=== PATIENT | female | born 2000 | race Two or more races ===

== ENCOUNTER 2022-08-10 18:55 | Emergency (ER) | payer MEDICAID, OTHER ==
[~2022-08-10] VITALS: Ht 167.6 cm; Wt 56.7 kg
--- NOTE | 2022-08-10 19:16 | NUR ---
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 LAST SEIZURE "SEVERAL MONTHS AGO". NO ORAL TRAUMA OR INCONTINENCE. PT AWAKE AND ALERTX4 ON ASSESSMENT RR EVEN AND UNLABORED. PLACED ON MONITOR AND SZR PRECAUTIONS IN PLACE.
--- NOTE | 2022-08-10 19:24 | NUR ---
PHLEB AT BEDSIDE FOR LAB DRAW
--- NOTE | 2022-08-10 19:24 | NUR ---
emt at bedside for ekg
[2022-08-10] MEDS ORDERED: IV NS 0.9% 1,000 ML BAG IV ONE (19:30)
[2022-08-10 19:51] LABS: BASOPHILS % (AUTO) 0.1 % (0.0-2.0); EOSINOPHILS % (AUTO) 1.1 % (0.0-6.0); HEMATOCRIT 34 % (33-45); HEMOGLOBIN 11.6 g/dL (11.5-14.8); LYMPHOCYTES # (AUTO) 2.6 K/uL (0.8-4.8); LYMPHOCYTES % (AUTO) 28.9 % (20.0-44.0); MEAN CORPUSCULAR HGB CONC 34 g/dl (31.0-36.0); MEAN CORPUSCULAR VOLUME 97 fL (82-100); MONOCYTES # (AUTO) 0.8 K/uL (0.1-1.30); MONOCYTES % (AUTO) 8.5 % (2.0-12.0); NEUTROPHILS # (AUTO) 5.5 K/uL (1.8-8.9); NEUTROPHILS % (AUTO) 61.4 % (43.0-81.0); PLATELET COUNT (AUTO) 298 K/uL (150-450)
[2022-08-10 19:59] LABS: CARBON DIOXIDE 27 mmol/L (21-32); CHLORIDE 105 mmol/L (98-107); CREATININE 0.9 mg/dL (0.6-1.3); GLUCOSE 97 mg/dL (74-106); POTASSIUM 4.2 mmol/L (3.5-5.1); SODIUM SERUM 139 mmol/L (136-145); UREA NITROGEN, BLOOD 14 mg/dL (7-18)
--- NOTE | 2022-08-10 20:00 | NUR ---
PT TAKEN TO CT VIA SHI
[2022-08-10 20:11] LABS: ALANINE AMINOTRANSFERASE 17 U/L (12-78); ALBUMIN 3.8 g/dL (3.4-5.0); ALKALINE PHOSPHATASE 62 U/L (46-116); ASPARTATE AMINOTRANSFERASE 15 U/L (15-37); BILIRUBIN,DIRECT 0.1 mg/dL (0.0-0.2); BILIRUBIN,TOTAL 0.2 mg/dL (0.2-1.0); TOTAL PROTEIN, SERUM 7.4 g/dL (6.4-8.2)
--- NOTE | 2022-08-10 22:02 | NUR ---
Patient discharged to home in stable condition. Written and verbal after care instructions given. Patient verbalizes understanding of instruction.IV removed. Catheter intact and site benign. Pressure and 4x4 applied to site. No bleeding noted.
[2022-08-10 22:09] VITALS: BP 113/65
[2022-08-10 22:47] LABS: ALCOHOL, BLOOD < 3 mg/dL (0-0)
== END 2022-08-10 22:09 | disposition home or self-care (01) ==
LOC: ER 18:58
DX: G40.909 Epilepsy, unspecified, not intractable, without status epilepticus (principal)
CPT/HCPCS: 99285; 96360; 93005; 71045; 70450; 85025; 80048; 83605; 80076; 84703; 36415; 85730; 80320; 80307; J7030; G0480